=== PATIENT | female | born 1960 | race Caucasian/White ===

== ENCOUNTER 2018-07-02 07:19 | Day surgery (SDC) | payer OTHER, BC ==
--- NOTE | 2018-06-29 14:18 | RAD REPORT ---
EXAM DESCRIPTION: Ely Cueva (2 Views)06/29/2018 2:13 pm CLINICAL HISTORY: Preop for back mass surgery COMPARISON: None FINDINGS: Lungs are mildly hyperaerated. The lungs appear clear of acute infiltrate. The heart is n ormal size IMPRESSION: No acute abnormalities displayed
[2018-06-29 14:24] LABS: Absolute Monocytes 0.4 K/uL (0.1-1.3); Absolute Neutrophil 3.1 K/uL (1.8-8.0); Basophils % 0.6 % (0-1.3); Hematocrit 43.6 % (36.0-45.0); Lymphocytes % 35.9 % (15.3-44.8); MCH 32.3 pg (27.0-35.0); MCV 92.9 fL (80-100); MPV 7.7 fL (7.6-11.3); Monocytes % 7.5 % (3.3-12.3); RBC Red Blood Cell Count 4.69 M/uL (3.86-4.86)
[2018-06-29 14:26] LABS: Potassium 3.7 mmol/L (3.5-5.1)
--- NOTE | 2018-06-30 08:30 | EKG ---
Test Date: 2018-06-29 Test Time: 13:54:33 [employer]otive [employer] Clerk: GÉNESIS MEASUREMENT RESULTS: Intervals: Rate: 71 MI: 180 QRSD: 82 QT: 404 QTc: 439 [place]: P: 63 MI: 180 QRS: 90 T: 67 INTERPRETIVE STATEMENTS: Sinus rhythm with premature atrial complexes Rightward axis Septal infarct, age undetermined Abnormal ECG No previous ECG available for comparison Electronically Signed On 06-30-18 08:29:27 SENIOR TECHNICAL ANALYST by Floyd Arauz
--- OUTSIDE RECORDS SUMMARY | 2018-07-02 07:23 | XMS REPORT | Clinical Summary ---
:1960 Author Organization [facility] Address [address] [place] [address] Care Team Providers Name Role Phone Elijah Ambrocio MD Primary Care Provider Allergies Active Allergy Reactions Severity Noted Date Comments Celecoxib Rash, GI Intolerance Low 05/10/2016 Medications Medication Sig Dispensed Refills Start Date End Date Status estradiol (ESTRACE) 1 MG Take 1 mg by 0 Active tablet mouth daily. clonAZEPAM (KlonoPIN) Take 0.5 mg by 0 Active 0.5 MG tablet mouth nightly as needed. methocarbamol (ROBAXIN) Take 750 mg by 0 Active 750 MG tablet mouth nightly as needed for muscle spasms. cyanocobalamin (VITAMIN Inject 1,000 mcg 0 Active B-12) 1,000 mcg/mL into the injection shoulder, thigh, or buttocks every 30 (thirty) days. DEXLANSOPRAZOLE Take by mouth. 0 Active (DEXILANT ORAL) pregabalin (LYRICA) 75 Take 75 mg by 0 Active MG capsule mouth 2 (two) times a day. fentaNYL (DURAGESIC) Place 1 patch on 0 Active 12.5 mcg/hr the skin every third day. promethazine (PHENERGAN) Take 25 mg by 0 Active 25 MG tablet mouth every 6 (six) hours as needed for nausea or vomiting. HYDROcodone-acetaminophe Take 1 tablet by 0 Active n (NORCO 10-325) 10-325 mouth every 6 mg per tablet (six) hours as needed for moderate pain. apixaban (ELIQUIS) 2.5 Take 2.5 mg by 0 Active mg tablet mouth 2 (two) times a day. Active Problems No known active problems Family History Medical History Relation Name Comments Heart disease Father Anuerysm Mother Relation Name Status Comments Father Mother Social History Tobacco Use Types Packs/Day Years Used Date Current Every Day Smoker Cigarettes 0.25 Smokeless Tobacco: Never Used Alcohol Use Drinks/Week oz/Week Comments No Sex Assigned at Date Recorded Not on file Job Start Date Occupation Industry Not on file Not on file Not on file Travel History Travel Start Travel End No recent travel history available. Last Filed Vital Signs Not on file Plan of Treatment Health Maintenance Due Date Last Done Comments CERVICAL CANCER SCREENING 1980 BREAST CANCER SCREENING 2009 COLON CANCER SCREENING 2009 SHINGRIX VACCINE (1 of 2) 2009 INFLUENZA VACCINE 02/28/2018 HEPATITIS B VACCINES Aged Out No longer eligible based on patient's age to complete this topic IPV VACCINES Aged Out No longer eligible based on patient's age to complete this topic MENINGOCOCCAL VACCINE Aged Out No longer eligible based on patient's age to complete this topic Results Not on fileafter 07/01/2017 Insurance Payer Benefit Plan / Group Subscriber ID Type Phone Address MEDICARE MEDICARE PART A AND B xxxxxxxxxx Medicare [place], [place] BCBS BCBS CHOICE PPO/[employer] PPO xxxxxxxxxxxx PPO Advance Directives Patient has advance care planning documents on file. For more information, please contact:[place] [address]
--- OUTSIDE RECORDS SUMMARY | 2018-07-02 07:23 | XMS REPORT | Continuity of Care Document ---
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 04/07/20 [facility] [place] 11/ NECK Active 05/22/20 [place] [address] [facility] CERVICAL Active 05/22/20 [facility] SPONDYLOSIS AND Medical RADICULOPATHY, Center DM (<span Active Problem 05/15/2016 diet ID="[id number] controlled [facility], ">Confirmed</spa H [place] n>)<sup>1</sup> [facility] DVT (<span Active Problem 05/15/2016 ID="[id number] [facility],M ">Confirmed</spa H [place] n>) Medical [place] Pain Active Problem 05/15/2016 [facility] Spondylolysis Active Problem 05/15/2016 [facility] OTHER Active [facility] SPONDYLOSIS WITH Medical RADICULOPATHY, Center CE RADICULOPATHY, Active [facility] CERVICAL REGION [facility] PAIN IN LEG, Active UNSPECIFIED [place] LOCALIZED Active SWELLING, MASS [place] AND LUMP, UNSPE PERIPHERAL Active VASCULAR [facility] DISEASE, UNSPECIFIED CAUSALGIA OF Active [facility] LEFT LOWER LIMB [facility] Medications Medication Details Route Status Patient Ordering Order Source Instructions Provider Date pneumococcal 0.5 mL, Route: Inactive 06/06[facility] capsular IM, Drug Form: 2014 Medical polysaccharide INJ, Daily, [place] type 1 vaccine / Start date: pneumococcal 06/06/15 capsular 9:00:00, polysaccharide Duration: 1 type 10A vaccine doses or times, / pneumococcal Stop date: capsular 06/06/15 polysaccharide 9:00:00Notes: type 11A vaccine (Same as: / pneumococcal Pneumovax 23) capsular Refrigerate polysaccharide type 12F vaccine / pneumococcal capsular polysacchar influenza virus 0.5 mL, Route: Inactive [facility] vaccine, IM, Drug Form: 2014 Medical inactivated SUSP, Daily, Center Start date: 06/06/15 9:00:00, Duration: 1 doses or times, Stop date: 06/06/15 9:00:00Notes: (Same as: Fluzone Quadrivalent) For 3 years of age and older (0.5 mL IM) Shake well before use Estradiol 1 mg, 1 tab, Inactive [place] Route: PO, Drug 2014 Medical form: TAB, Center Daily, Dosing Weight 60, kg, Start date: 06/06/15 9:00:00, Duration: 30 day, Stop date: 07/05/15 9:00:00 Clonazepam 0.5 mg, 1 tab, No Longer [facility] Route: PO, Drug Active 2014 Medical form: TAB, Center Bedtime, Dosing Weight 60, kg, Start date: 06/05/15 21:00:00, Duration: 30 day, Stop date: 07/04/15 21:00:00Notes: (Same As: KlonoPIN) Dexamethasone 4 mg, 1 mL, No Longer [place] Route: IVP, Drug Active 2014 Medical form: INJ, Center [id number], Dosing Weight 60, kg, Start date: 06/05/15 18:00:00, Duration: 1 day, Stop date: 06/06/15 6:00:00Notes: Concentration: 4mg/ml Lyrica 75 mg, 1 cap, No Longer [place] Route: PO, Drug Active 2014 Medical form: CAP, BID, Center Dosing Weight 60, kg, Start date: 06/05/15 17:00:00, Duration: 30 day, Stop date: 07/05/15 9:00:00Notes: (Same as: Lyrica) Docusate Sodium 100 mg, 1 cap, No Longer [facility] 100 MG Oral Route: PO, Drug Active 2014 Medical Capsule [Colace] form: CAP, BID, Center Dosing Weight 60, kg, Start date: 06/05/15 17:00:00, Duration: 30 day, Stop date: 07/05/15 9:00:00Notes: (Same as: Colace) (Do Not Crush) ceFAZolin (SCIP) 1 gm, Route: No Longer [facility] IVPB, Drug form: Active 2014 Medical PDR/INJ, Q8H, Center Dosing Weight 60, kg, Start date: 06/05/15 17:00:00, Duration: 24 hr, Stop date: 06/06/15 9:00:00Notes: (Same As: Sandeep Carlos) MEDICATION WASTE Product Size: 1000 mg Product Wasted: ___ mg ketOROLAC 30 30 mg, 1 mL, No Longer [place] mg/mL injectable Route: IV, Drug Active 2014 Medical solution form: INJ, Center Q6H-02, Dosing Weight 60, kg, Start date: 06/05/15 14:00:00, Duration: 1 day, Stop date: 06/06/15 8:00:00Notes: (Same as:Toradol) IV bolus must be given >15 seconds. Give IM administration slowly and deeply into the muscle. Not for use > 4 days MEDICATION WASTE Product Size: 30 mg Product Wasted: ___ mg Ambien 5 mg, 1 tab, No Longer [place] Route: PO, Drug Active 2014 Medical form: TAB, Center Bedtime, PRN Sleep, Start date: 06/05/15 13:02:00, Duration: 30 day, Stop date: 07/05/15 13:01:00Notes: (Same As: Ambien) Ofirmev 1,000 mg, 100 No Longer [place] mL, Route: IV, Active 2014 Medical Drug form: INJ, Center Q6H, Dosing Weight 60, kg, for > or=50 kg, Start date: 06/05/15 12:00:00, Duration: 1 day, Stop date: 06/06/15 6:00:00Notes: Infuse over 15 minutes Do not exceed 4gm/day of acetaminophen MEDICATION WASTE Product Size: 1000 mg Product Wasted: ___ mg Fentanyl Route: TOP, Drug No Longer [place] form: ERFILM, Active 2014 Medical Q72H, Dosing Center Weight 60, kg, Start date: 06/05/15 12:00:00, Duration: 30 day, Stop date: 07/02/15 12:00:00Notes: (Same as: Duragesic) Check for product integrity. Apply to intact skin "Remove old patch before application of new patch" 1 patch delivers 12.5 micrograms Baclofen 10 mg, 1 tab, No Longer [place] Route: PO, Drug Active 2014 Medical form: TAB, TID, Center Dosing Weight 60, kg, PRN as needed for muscle spasm, Start date: 06/05/15 11:22:00, Duration: 30 day, Stop date: 07/05/15 11:21:00Notes: (Same As: Lioresal) Zofran 4 mg, 2 mL, No Longer [place] Route: IV, Drug Active 2014 Medical form: INJ, Q4H, Center Dosing Weight 60, kg, PRN Nausea, Start date: 06/05/15 11:20:00, Duration: 30 day, Stop date: 07/05/15 11:19:00Notes: (Same as: Zofran) MEDICATION WASTE Product Size: 4 mg Product Wasted: ___ mg sennosides, [facility]IOR [facility] 8.6 mg, 1 tab, No Longer [facility] Route: PO, Drug Active 2014 Medical Form: TAB, Center Dosing Weight 60, kg, Daily, PRN Constipation, Start date: 06/05/15 11:20:00, Duration: 30 day, Stop date: 07/05/15 11:19:00Notes: (Same as: Senokot) Phenergan 12.5 mg, 0.5 mL, No Longer [place] Route: IVPB, Active 2014 Medical Drug form: INJ, Center Q4H, Dosing Weight 60, kg, PRN Nausea & Vomiting, Start date: 06/05/15 11:19:00, Duration: 30 day, Stop date: 07/05/15 11:18:00Notes: Do not give IV push. (Same as: Phenergan) normal saline 1,000 mL, Rate: No Longer [place] 0.9% IV 1,000 mL 75 ml/hr, Infuse Active 2014 Medical over: 13.3 hr, Center Route: IV, Dosing Weight 60 kg, Total Volume: 1,000, Start date: 06/05/15 11:19:00, Duration: 30 day, Stop date: 07/05/15 11:18:00 Morphine 2 mg, 1 mL, No Longer [facility] Route: IVP, Drug Active 2014 Medical form: INJ, Q4H, Center Dosing Weight 60, kg, PRN Pain Score 4-6, Start date: 06/05/15 11:19:00, Duration: 30 day, Stop date: 07/05/15 11:18:00Notes: (Same as:MORPhine Sulfate) Diphenhydramine 25 mg, 1 cap, No Longer [facility] Route: PO, Drug Active 2014 Medical form: CAP, TID, Center Dosing Weight 60, kg, PRN Itching, Start date: 06/05/15 11:19:00, Duration: 30 day, Stop date: 07/05/15 11:18:00Notes: (Same as: Benadryl) Benzocaine 15 MG 1 lozenge, No Longer [facility] / Menthol 3.6 MG Route: PO, Drug Active 2014 Medical Lozenge [Cepacol Form: EFRAIN, Center Sore Throat Pain Dosing Weight Relief 15/3.6] 60, kg, Q2H, PRN as needed for sore throat, Start date: 06/05/15 11:18:00, Duration: 30 day, Stop date: 07/05/15 11:17:00Notes: Cepacol lozenges Dispense 1 box=16 lozenges (Same As: Cepacol Lozenges) Ambien 10 mg, Route: Inactive Surekha PO, Bedtime, 2014 Medical Dosing Weight Center 60, kg, PRN Insomnia, Start date: 06/05/15 11:18:00, Duration: 30 day, Stop date: 07/05/15 11:17:00 Oxycodone 5 mg, 1 tab, No Longer [facility] Hydrochloride 5 Route: PO, Drug Active 2014 Medical MG Oral Tablet form: TAB, Q4H, Center Dosing Weight 60, kg, PRN Pain Score 1-5, Start date: 06/05/15 11:16:00, Duration: 30 day, Stop date: 07/05/15 11:15:00Notes: (Same as: Roxicodone) Phenergan 25 mg, 1 tab, No Longer [facility] Route: PO, Drug Active 2014 Medical form: TAB, Q6H, Center Dosing Weight 60, kg, PRN Nausea, Start date: 06/05/15 11:15:00, Duration: 30 day, Stop date: 07/05/15 11:14:00Notes: (Same as: Phenergan) Hydromorphone 0.5 mg, Route: Inactive [facility] IVP, Q5Min, 2014 Medical Dosing Weight Center 60, kg, PRN Pain Score 7-10, Start date: 06/05/15 10:24:00, Duration: 4 doses or times, Stop date: Limited # of times Naloxone 0.04 mg, Route: Inactive [facility] IVP, Q2MIN, 2014 Medical Dosing Weight Center 60, kg, PRN Narcotic Reversal, Start date: 06/05/15 10:24:00, Duration: 8 doses or times, Stop date: Limited # of times Ondansetron 4 mg, Route: Inactive [facility] IVP, ONCE, 2014 Medical Dosing Weight Center 60, kg, PRN Nausea & Vomiting, Start date: 06/05/15 10:24:00 Flumazenil 0.2 mg, Route: Inactive [facility] IVP, PRN, Dosing 2014 Medical Weight 60, kg, Center PRN Benzodiazepine Reversal, Initial dose, Start date: 06/05/15 10:24:00, Duration: 30 day, Stop date: 07/05/15 10:23:00 Ofirmev 1 gm, 100 mL, No Longer [place] Route: IV, Drug Active 2014 Medical form: INJ, PRE Center OP, Start date: 06/04/15 23:00:00, Duration: 1 day, Stop date: 06/05/15 22:59:00Notes: Infuse over 15 minutes Do not exceed 4gm/day of acetaminophen MEDICATION WASTE Product Size: 1000 mg Product Wasted: ___ mg ceFAZolin 2 gm, 100 mL, No Longer [facility] Route: IVPB, Active 2014 Medical Drug form: INJ, Center PRE OP, Start date: 06/04/15 23:00:00, Duration: 1 day, Stop date: 06/05/15 22:59:00Notes: Same as: Ancef Vitamin B12 1000 1,000 Active [place] mcg/mL injectable microgram=1 mL, 2015 Medical solution IM, qMonth, # 10 [place] mL, 0 Refill(s) baclofen 10 mg 10 mg=1 tab, PO, Active [facility] oral tablet TID, # 270 tab, 2015 Medical 0 Refill(s) [place] oxyCODONE 5 mg 5 mg=1 cap, PO, Active [facility] oral capsule Q6H, PRN Pain, 0 2014 Medical Refill(s) [place] Promethazine 25 mg=1 tab, PO, Active [place] Hydrochloride 25 Q6H, PRN Nausea, 2015 Medical MG Oral Tablet # 15 tab, 0 [place] [Phenergan] Refill(s) fentaNYL 12 1 patch, TOP, Active [facility] mcg/hr Q72H, # 10 [facility][note 2] Medical transdermal film, patch, 0 [place] extended release Refill(s) Aspirin 325 mg, PO, Active [facility] Daily, 0 2014 Medical Refill(s) [place] clonazePAM 0.5 mg 0.5 mg=1 tab, Active [facility] oral tablet PO, Bedtime, 0 [facility][note 2] Medical Refill(s) [place] Estradiol 1 mg, PO, Daily, Active [facility] 0 Refill(s) [address] [place] [address] potassium 20 mEq, PO, Active [facility] chloride Daily, 0 [facility][note 2] Medical Refill(s) [place] pregabalin 75 MG 75 mg=1 cap, PO, Active [facility] Oral Capsule BID, 0 Refill(s) [address] [place] [address] [Lyrica] [place] Furosemide 40 MG 40 mg=1 tab, PO, Active [facility] Oral Tablet Daily, [address] [place] [address] [Lasix] Refill(s) [place] Allergies, Adverse Reactions, Alerts Substance Category Reaction Severity Reaction Status Date Comments Source type Reported Immunizations Immunization Date Site Status Last Updated Comments Source Given influenza virus Left completed [facility] vaccine, 5 deltoid [facility] pneumococcal Right completed [facility] 23-valent vaccine 5 deltoid [facility] Results Order Name Results Value Reference Date Interpretation Comments Source Range BLOOD BANK Antibody Negative 06/05 [facility] RESULTS Scrn /2014 Medical (06/05/15 7:35 AM) [place] BLOOD BANK ABO/Rh O POS 06/05 [facility] HEMATOLOGY TEG Interp Thrombelast 05/29 [facility] ograph [facility] show shortened value of R. 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 [facility] HEMATOLOGY TEG Data See Note 05/29 [facility] (05/29/15 10:55 AM) [place] HEMATOLOGY R-time 4.8 min 5.0 - 10.0 05/29 [facility] HEMATOLOGY K-time 1.4 min 1.0 - 3.0 05/29 [facility] HEMATOLOGY Angle 70.1 53.0 - 05/29 [facility] degrees 72. [facility] HEMATOLOGY Max Amp 58.9 mm 50.0 - 05/29 [facility] 70.0 [facility] HEMATOLOGY G-value 7.2 K d/sc 4.5 - 11.0 05/29 [facility] HEMATOLOGY Ly30 4.6 % 0.0 - 7.5 05/29 [facility] CHEM PANEL eGFR 72 05/29 Result Comment: The eGFR is calculated using the CKD-EPI formula. In most young, healthy individuals the eGFR will be >90 mL/ min/1.73m2. The eGFR declines with age. An eGFR of 60-89 may be normal in [facility] mL/min/1.73 /2014 some populations, particularly the elderly, for whom the CKD-EPI formula has not been extensively validated. Use of the eGFR is not recommended in the following populations: [place] [address] [facility] Individuals with unstable creatinine concentrations, including patients and those with serious co-morbid conditions. Patients with extremes in muscle mass or diet. The data above are obtained from the National Kidney Disease Education Program (NKDEP) which additionally recommends that when the eGFR is used in patients with extremes of body mass index for purposes of drug dosing, the eGFR should be multiplied by the estimated BMI. CHEM PANEL BUN 13 mg/dL 7 - 22 05/29 [facility] CHEM PANEL Glucose Lvl 51 mg/dL 70 - 99 05/29 2014 [facility] CHEM PANEL Potassium 4.5 meq/L 3.5 - 5.1 05/29 [facility] Lv [facility] CHEM PANEL Creatinine 0.9 mg/dL 0.5 - 1.4 05/29 [facility] Lvl [facility] CHEM PANEL Sodium Lvl 147 meq/L 135 - 145 05/29 2014 [facility] CHEM PANEL CO2 28 meq/L 24 - 32 05/29 2014 [facility] CHEM PANEL Chloride Lvl 108 meq/L 95 - 109 05/[address] CHEM PANEL Calcium Lvl 8.9 mg/dL 8.5 - 10.5 05/29 [facility] CHEM PANEL AGAP 15.5 meq/L 10.0 - 05/29 [facility] 20.0 [facility] CHEM PANEL Total 6.8 g/dL 6.4 - 8.4 05/29 [facility] Protein [facility] CHEM PANEL B/C Ratio 14 6 - 25 05/[address] CHEM PANEL ALT 28 unit/L 0 - 65 05/[address] CHEM PANEL Globulin 3.0 g/dL 2.0 - 4.0 05/29 2014 [facility] CHEM PANEL A/G Ratio 1.3 0.7 - 1.6 05/[address] CHEM PANEL Albumin Lvl 3.8 g/dL 3.5 - 5.0 05/29 2014 [facility] CHEM PANEL AST 18 unit/L 0 - 37 05/29 [facility] CHEM PANEL Bili Total 0.3 mg/dL 0.2 - 1.3 05/[address] CHEM PANEL Alk Phos 96 unit/L 39 - 136 05/29 /2014 [facility] HEMATOLOGY Monocytes # 0.6 K/CMM 0.0 - 0.8 05/[address] [place] [address] HEMATOLOGY Eosinophils 0.1 K/CMM 0.0 - 0.5 05/29 [facility] /2014 [facility] HEMATOLOGY Lymphocytes 2.7 K/CMM 1.0 - 5.5 05/29 [facility] /2014 [facility] HEMATOLOGY Segs-Bands # 5.2 K/CMM 1.5 - 8.1 05/[address] HEMATOLOGY Eosinophils 1.6 % 0.0 - 4.0 05/29 [facility] /[address] [place] [address] HEMATOLOGY Basophils 0.3 % 0.0 - 1.0 05/[address] HEMATOLOGY Lymphocytes 31.0 % 20.0 - 05/29 [place] 40.0 /2014 [facility] HEMATOLOGY Segs 60.2 % 45.0 - 10 [place] 75.0 /2014 [facility] HEMATOLOGY Monocytes 6.9 % 2.0 - 12.0 05/29 [facility] HEMATOLOGY MCHC 32.7 g/dL 32.0 - 05/29 [place] 36.0 /2014 [facility] HEMATOLOGY MCH 31.2 pg 27.0 - 05/29 [place] 31.0 [facility] HEMATOLOGY RDW 13.4 % 11.5 - 05/29 [place] 14.5 [facility] HEMATOLOGY Hgb 15.4 g/dL 12.0 - 05/29 [place] 16.0 [facility] HEMATOLOGY RBC 4.95 M/CMM 4.20 - 05/29 5.40 /2014 [facility] HEMATOLOGY MPV 8.0 fL 7.4 - 10.4 05/29 [facility] HEMATOLOGY Platelet 270 K/CMM 133 - 450 05/29 [facility] HEMATOLOGY MCV 95.4 fL 80.0 - 05/29 [place] 98.0 [facility] HEMATOLOGY Hct 47.2 % 36.0 - 05/29 [place] 48.0 [facility] HEMATOLOGY WBC 8.6 K/CMM 3.7 - 10.4 05/29 [facility] HEMATOLOGY INR 0.97 0.85 - 05/29 [place] 1.17 [facility] HEMATOLOGY PT 13.2 s 12.0 - 05/29 14.7 [facility] HEMATOLOGY PTT 36.5 s 22.9 - 05/29 [place] 35.8 [facility] SPECIAL Hgb A1C 5.1 % <=5.6 % 05/29 [facility] CHEMISTRY [facility] THYROID T4 Free 1.23 ng/dL 0.76 - 05/29 [facility] PANEL 1.46 [facility] THYROID TSH 1.770 0.360 - 05/29 [facility] PANEL uIU/mL 3.740 [facility] Vital Signs Vital Sign Value Date Comments Source Weight 60 04/13/2016 [facility] Height 167.64 cm 04/13/2016 [facility] BMI Calculated 21.35 04/13/2016 [facility] Height 167.64 cm 04/12/2016 [facility] BMI Calculated 21.35 04/12/2016 [facility] Weight 60 04/12/2016 [facility] Systolic (mm Hg) 121 06/06/2015 [facility] Diastolic (mm Hg) 70 06/06/2015 [facility] Respitory Rate 18 06/06/2015 [facility] Heart Rate 68 06/06/2015 [facility] Temperature Oral (F) 97.6 F 06/06/2015 [facility] Systolic (mm Hg) 118 06/06/2015 [facility] Diastolic (mm Hg) 64 06/06/2015 [facility] Respitory Rate 18 06/06/2015 [facility] Heart Rate 62 06/06/2015 [facility] Temperature Oral (F) 97.8 F 06/06/2015 [facility] Respitory Rate 18 06/06/2015 [facility] Systolic (mm Hg) 105 06/06/2015 [facility] Diastolic (mm Hg) 51 06/06/2015 [facility] Heart Rate 56 06/06/2015 [facility] Temperature Oral (F) 97.9 F 06/06/2015 [facility] Height 167.64 cm 06/05/2015 [facility] Weight 60 06/05/2015 [facility] BMI Calculated 21.35 06/05/2015 [facility] Weight 60 05/29/2015 [facility] BMI Calculated 21.35 05/29/2015 [facility] Height 167.64 cm 05/29/2015 [facility] Encounters Location Location Encounter Encounter Reason Attending ADM DC Status Source Details Type Number For Provider Date Date Visit [id number] Adin 05/22 05/22 [facility] Surgery [facility]2014 [facility] Bedded [id number] Adin 06/05 06/06 [facility] Outpatient [facility] /2014 [facility] Outpatient [id number] Shakira 04/12 04/13 [facility] /2015 [facility] Outpatient [id number] Shakira 04/13 04/14 [facility] /2015 [facility] Outpatient [id number] Shakira 05/12 05/13 [facility] /2015 [facility] Procedures Procedure Code Date Perfomer Comments Source Cholecystectomy [id number] [facility] Foot joint operations [id number] [facility] Hysterectomy [id number] [facility] Jaw and [id number] [facility] temporomandibular joint operations Cholecystectomy [id number] [facility] Foot joint operations [id number] [facility] Hysterectomy [id number] [facility] Jaw and [id number] [facility] joint operations
--- OUTSIDE RECORDS SUMMARY | 2018-07-02 07:24 | XMS REPORT | Summary of Care ---
:1960 Author Organization [facility] Address [facility] [place], [place] [address]- Encounter HQ Kelsy_jacquelyn(FIN) [id number] Date(s): 04/13/16 - 04/13/[address] [address]- Discharge Disposition: Home or Self Care Attending Physician: Shakira Gonzalez MD Referring Physician: Shakira Gonzalez MD Vital Signs Most recent to oldest [Reference Range]: 1 Height 167.64 cm (04/13/16 8:19 AM) Weight 60 kg (04/13/16 8:19 AM) Body Mass Index 21.35 m2 (04/13/16 8:19 AM) Problem List Condition Effective Dates Status Health Status Informant DM (diabetes mellitus)(Confirmed)1 Active DVT (deep venous Active thrombosis)(Confirmed) Pain(Confirmed) Active Spondylolysis(Confirmed) Active 1diet controlled Allergies, Adverse Reactions, Alerts Substance Reaction Severity Status NKDA Active Medications No data available for this section Results No data available for this section Immunizations Given and Recorded Vaccine Date Status Refusal Reason influenza virus vaccine, inactivated 06/06/15 Given pneumococcal 23-valent vaccine 06/06/15 Given Procedures Procedure Date Related Diagnosis Body Site Cholecystectomy Foot joint operations Hysterectomy Jaw and temporomandibular joint operations Social History Social History Type Response Smoking Status Current every day smoker; Exposure to Tobacco Smoke None; Cigarette Smoking Last 365 Days Yes; Reg Smoking Cessation Counseling No Assessment and Plan No data available for this section
--- OUTSIDE RECORDS SUMMARY | 2018-07-02 07:24 | XMS REPORT | Summary of Care ---
:1960 Author Organization [facility] Address [facility] [place], [place] [address]- Encounter HQ Kelsy_jacquelyn(FIN) [id number] Date(s): 04/12/16 - 04/12/[address] [address]- Discharge Disposition: Home or Self Care Attending Physician: Shakira Gonzalez MD Referring Physician: Shakira Gonzalez MD Vital Signs Most recent to oldest [Reference Range]: 1 Height 167.64 cm (04/12/16 8:55 AM) Weight 60 kg (04/12/16 8:55 AM) Body Mass Index 21.35 m2 (04/12/16 8:55 AM) Problem List Condition Effective Dates Status [...]
--- OUTSIDE RECORDS SUMMARY | 2018-07-02 07:24 | XMS REPORT | Summary of Care ---
:1960 Author Organization [facility] Address [address] [place], [place] [address]- Encounter HQ Caitlynr_jacquelyn(FIN) [id number] Date(s): 05/12/16 - 05/12/16 [facility] [address] [place], [place] [address]- Discharge Disposition: Home or Self Care Attending Physician: Shakira Gonzalez MD Referring Physician: Shakira Gonzalez MD Vital Signs No data available for this section Problem List Condition Effective Dates Status Health [...]
--- OUTSIDE RECORDS SUMMARY | 2018-07-02 07:24 | XMS REPORT | Summary of Care ---
:1960 Author Organization [facility] Address [address], [place] [address]- Encounter HQ Caitlynr_jacquelyn(FIN) [id number] Date(s): 06/05/15 - 06/06/15 [facility] [address] [place] [address] Professional Services provided by [facility] [place] [address]- Discharge Disposition: Home Attending Physician: Adin Lindsey DO Admitting Physician: Adin Lindsey DO Referring Physician: Adin Lindsey DO Vital Signs Most recent to oldest 1 2 3 [Reference Range]: Height 167.64 cm 167.64 cm (06/05/15 7:51 AM) (05/29/15 1:26 PM) Temperature Oral [96.4-99.1 97.6 DegF 97.8 DegF 97.9 DegF DegF] (06/06/15 8:25 AM) (06/06/15 4:05 AM) (06/06/15 12:25 AM) Blood Pressure [90-140/60-90 121/70 mmHg 118/64 mmHg 105/51 mmHg mmHg] (06/06/15 8:25 AM) (06/06/15 4:05 AM) (06/06/15 12:25 AM) Respiratory Rate [14-20 18 BRMIN 18 BRMIN 18 BRMIN BRMIN] (06/06/15 8:25 AM) (06/06/15 4:05 AM) (06/06/15 12:25 AM) Peripheral Pulse Rate [60-100 68 bpm 62 bpm 56 bpm bpm] (06/06/15 8:25 AM) (06/06/15 4:05 AM) *LOW* (06/06/15 12:25 AM) Weight 60 kg 60 kg (06/05/15 7:51 AM) (05/29/15 1:26 PM) Body Mass Index 21.35 m2 21.35 m2 (06/05/15 7:51 AM) (05/29/15 1:26 PM) Problem List Condition Effective Dates Status Health Status Informant DM (diabetes mellitus)(Confirmed)1 Active DVT (deep venous Active thrombosis)(Confirmed) Pain(Confirmed) Active Spondylolysis(Confirmed) Active 1diet controlled Allergies, Adverse Reactions, Alerts Substance Reaction Severity Status NKDA Active Medications Ambien 5 mg, 1 tab, Route: PO, Drug form: TAB, Bedtime, PRN Sleep, Start date: 13:02:00, Duration:30 day, Stop date: 07/05/15 13:01:00 Notes: (Same As: Ambien) Start Date: 06/05/15 Stop Date: 06/06/15 Status: DiscontinuedAmbien 10 mg, Route: PO, Bedtime, Dosing Weight 60, kg, PRN Insomnia, Start date: 06/05 11:18:00, Duration: 30 day, Stop date: 07/05/15 11:17:00 Start Date: 06/05/15 Stop Date: 06/05/15 Status: Deletedaspirin 325 mg, PO, Daily, 0 Refill(s) Start Date: 05/29/15 Status: Orderedbaclofen 10 mg, 1 tab, Route: PO, Drug form: TAB, TID, Dosing Weight 60, kg, PRN as needed for muscle spasm, Start date: 06/05/15 11:22:00, Duration: 30 day, Stop date: 07/05/15 11:21:00 Notes: (Same As: Bertha) Start Date: 06/05/15 Stop Date: 06/06/15 Status: Discontinuedbaclofen 10 mg oral tablet 10 mg=1 tab, PO, TID, # 270 tab, 0 Refill(s) Start Date: 05/29/15 Status: OrderedceFAZolin 2 gm, 100 mL, Route: IVPB, Drug form: INJ, PRE OP, Start date: 06/04/15 23:00:00 , Duration: 1 day, Stop date: 06/05/15 22:59:00 Notes: Same as: Ancef Start Date: 06/04/15 Stop Date: 06/05/15 Status: CompletedceFAZolin (SCIP) 1 gm, Route: IVPB, Drug form: PDR/INJ, Q8H, Dosing Weight 60, kg, Start date: 17:00:00, Duration: 24 hr, Stop date: 06/06/15 9:00:00 Notes: (Same As: Sandeep Carlos) MEDICATION WASTE Product Size: 1000 mgProduct Wasted: ___ mg Start Date: 06/05/15 Stop Date: 06/06/15 Status: CompletedCepacol Sore Throat Ivey Sugar Free 15 mg-3.6 mg mucous membrane lozenge 1 lozenge, Route: PO, Drug Form: EFRAIN, Dosing Weight 60, kg, Q2H, PRN as needed for sore throat, Start date: 06/05/15 11:18:00, Duration: 30 day, Stop date: 01/12 11:17:00 Notes: Cepacol lozengesDispense 1 box=16 lozenges (Same As: Cepacol Lozenges) Start Date: 06/05/15 Stop Date: 06/06/15 Status: DiscontinuedclonazePAM 0.5 mg, 1 tab, Route: PO, Drug form: TAB, Bedtime, Dosing Weight 60, kg, Start date: 06/05/15 21:00:00, Duration: 30 day, Stop date: 07/04/15 21:00:00 Notes: (Same As: KlonoPIN) Start Date: 06/05/15 Stop Date: 06/06/15 Status: DiscontinuedclonazePAM 0.5 mg oral tablet 0.5 mg=1 tab, PO, Bedtime, 0 Refill(s) Start Date: 05/29/15 Status: OrderedColace 100 mg oral capsule 100 mg, 1 cap, Route: PO, Drug form: CAP, BID, Dosing Weight 60, kg, Start date : 06/05/15 17:00:00, Duration: 30 day, Stop date: 07/05/15 9:00:00 Notes: (Same as: Colace) (Do Not Crush) Start Date: 06/05/15 Stop Date: 06/06/15 Status: Discontinueddexamethasone 4 mg, 1 mL, Route: IVP, Drug form: INJ, [id number], Dosing Weight 60, kg, Start date: 06/05/15 18:00:00, Duration: 1 day, Stop date: 06/06/15 6:00:00 Notes: Concentration: 4mg/ml Start Date: 06/05/15 Stop Date: 06/06/15 Status: CompleteddiphenhydrAMINE 25 mg, 1 cap, Route: PO, Drug form: CAP, TID, Dosing Weight 60, kg, PRN Itching , Start date: 06/05/15 11:19:00, Duration: 30 day, Stop date: 07/05/15 11:18:00 Notes: (Same as: Benadryl) Start Date: 06/05/15 Stop Date: 06/06/15 Status: Discontinuedestradiol 1 mg, PO, Daily, 0 Refill(s) Start Date: 05/29/15 Status: Orderedestradiol 1 mg, 1 tab, Route: PO, Drug form: TAB, Daily, Dosing Weight 60, kg, Start date : 06/06/15 9:00:00, Duration: 30 day, Stop date: 07/05/15 9:00:00 Start Date: 06/06/15 Stop Date: 06/06/15 Status: DiscontinuedfentaNYL Route: TOP, Drug form: ERFILM, Q72H, Dosing Weight 60, kg, Start date: 06/05/15 12:00:00, Duration: 30 day, Stop date: 07/02/15 12:00:00 Notes: (Same as: Lalogesic)Check for product integrity. Apply to intact skin "Remove old patch before application of new patch"1 patch delivers 12.5 micrograms Start Date: 06/05/15 Stop Date: 06/06/15 Status: DiscontinuedfentaNYL 12 mcg/hr transdermal film, extended release 1 patch, TOP, Q72H, # 10 patch, 0 Refill(s) Start Date: 05/29/15 Status: Orderedflumazenil 0.2 mg, Route: IVP, PRN, Dosing Weight 60, kg, PRN Benzodiazepine Reversal, Initial dose, Start date: 06/05/15 10:24:00, Duration: 30 day, Stop date: 10:23:00 Start Date: 06/05/15 Stop Date: 06/05/15 Status: Discontinuedhydromorphone 0.5 mg, Route: IVP, Q5Min, Dosing Weight 60, kg, PRN Pain Score 7-10, Start date : 06/05/15 10:24:00,Duration: 4 doses or times, Stop date: Limited # of times Start Date: 06/05/15 Stop Date: 06/05/15 Status: Discontinuedinfluenza virus vaccine, inactivated 0.5 mL, Route: IM, Drug Form: SUSP, Daily, Start date: 06/06/15 9:00:00, Duration: 1 doses or times,Stop date: 06/06/15 9:00:00 Notes: (Same as: Fluzone Quadrivalent)For 3 years of age and older (0.5 mL IM) Shake well before use Start Date: 06/06/15 Stop Date: 06/06/15 Status: CompletedketOROLAC 30 mg/mL injectable solution 30 mg, 1 mL, Route: IV, Drug form: INJ, Q6H-02, Dosing Weight 60, kg, Start date : 06/05/15 14:00:00,Duration: 1 day, Stop date: 06/06/15 8:00:00 Notes: (Same as:Toradol) IV bolus must be given >15 seconds. Give IM administration slowly and deeply into the muscle.Not for use > 4 days MEDICATION WASTE Product Size: 30 mgProduct Wasted: ___ mg Start Date: 06/05/15 Stop Date: 06/06/15 Status: CompletedLasix 40 mg oral tablet 40 mg=1 tab, PO, Daily, 0 Refill(s) Start Date: 05/29/15 Status: OrderedLyrica 75 mg, 1 cap, Route: PO, Drug form: CAP, BID, Dosing Weight 60, kg, Start date: 06/05/15 17:00:00, Duration: 30 day, Stop date: 07/05/15 9:00:00 Notes: (Same as: Lyrica) Start Date: 06/05/15 Stop Date: 06/06/15 Status: DiscontinuedLyrica 75 mg oral capsule 75 mg=1 cap, PO, BID, 0 Refill(s) Start Date: 05/29/15 Status: Orderedmorphine Sulfate 2 mg, 1 mL, Route: IVP, Drug form: INJ, Q4H, Dosing Weight 60, kg, PRN Pain Score 4-6, Start date: 06/05/15 11:19:00, Duration: 30 day, Stop date: 07/05/15 11:18:00 Notes: (Same as:MORPhine Sulfate) Start Date: 06/05/15 Stop Date: 06/06/15 Status: Discontinuedmorphine Sulfate 4 mg, 1 mL, Route: IVP, Drug form: INJ, Q4H, Dosing Weight 60, kg, PRN Pain Score 7-10, Start date: 06/05/15 11:19:00, Duration: 30 day, Stop date: 11:18:00 Notes: (Same as:MORPhine Sulfate) Start Date: 06/05/15 Stop Date: 06/06/15 Status: Discontinuednaloxone 0.04 mg, Route: IVP, Q2MIN, Dosing Weight 60, kg, PRN Narcotic Reversal, Start date: 06/05/15 10:24:00, Duration: 8 doses or times, Stop date: Limited # of times Start Date: 06/05/15 Stop Date: 06/05/15 Status: Discontinuednormal saline 0.9% IV 1,000 mL 1,000 mL, Rate: 75 ml/hr, Infuse over: 13.3 hr, Route: IV, Dosing Weight 60 kg, Total Volume: 1,000,Start date: 06/05/15 11:19:00, Duration: 30 day, Stop date: 07/05/15 11:18:00 Start Date: 06/05/15 Stop Date: 06/06/15 Status: DiscontinuedOfirmev 1 gm, 100 mL, Route: IV, Drug form: INJ, PRE OP, Start date: 06/04/15 23:00:00, Duration: 1 day, Stop date: 06/05/15 22:59:00 Notes: Infuse over 15 minutesDo not exceed 4gm/day of acetaminophen MEDICATION WASTE ProductSize: 1000 mgProduct Wasted: ___ mg Start Date: 06/04/15 Stop Date: 06/06/15 Status: DiscontinuedOfirmev 1,000 mg, 100 mL, Route: IV, Drug form: INJ, Q6H, Dosing Weight 60, kg, for > or =50 kg, Start date: 06/05/15 12:00:00, Duration: 1 day, Stop date: 06/06/15 6:00 :00 Notes: Infuse over 15 minutesDo not exceed 4gm/day of acetaminophen MEDICATION WASTE ProductSize: 1000 mgProduct Wasted: ___ mg Start Date: 06/05/15 Stop Date: 06/06/15 Status: Completedondansetron 4 mg, Route: IVP, ONCE, Dosing Weight 60, kg, PRN Nausea & Vomiting, Start date: 06/05/15 10:24:00 Start Date: 06/05/15 Stop Date: 06/05/15 Status: DiscontinuedoxyCODONE 5 mg immediate release 5 mg, 1 tab, Route: PO, Drug form: TAB, Q4H, Dosing Weight 60, kg, PRN Pain Score 1-5, Start date: 06/05/15 11:16:00, Duration: 30 day, Stop date: 07/05/15 11:15:00 Notes: (Same as: Roxicodone) Start Date: 06/05/15 Stop Date: 06/06/15 Status: DiscontinuedoxyCODONE 5 mg oral capsule 5 mg=1 cap, PO, Q6H, PRN Pain, 0 Refill(s) Start Date: 05/29/15 Stop Date: 06/05/15 Status: OrderedPhenergan 25 mg, 1 tab, Route: PO, Drug form: TAB, Q6H, Dosing Weight 60, kg, PRN Nausea, Start date: 06/05/1511:15:00, Duration: 30 day, Stop date: 07/05/15 11:14:00 Notes: (Same as: Phenergan) Start Date: 06/05/15 Stop Date: 06/06/15 Status: DiscontinuedPhenergan 12.5 mg, 0.5 mL, Route: IVPB, Drug form: INJ, Q4H, Dosing Weight 60, kg, PRN Nausea & Vomiting, Start date: 06/05/15 11:19:00, Duration: 30 day, Stop date: 07/05/15 11:18:00 Notes: Do not give IV push. (Same as: Phenergan) Start Date: 06/05/15 Stop Date: 06/06/15 Status: DiscontinuedPhenergan 25 mg oral tablet 25 mg=1 tab, PO, Q6H, PRN Nausea, # 15 tab, 0 Refill(s) Start Date: 05/29/15 Stop Date: 06/02/15 Status: Orderedpneumococcal 23-valent vaccine 0.5 mL, Route: IM, Drug Form: INJ, Daily, Start date: 06/06/15 9:00:00, Duration : 1 doses or times, Stop date: 06/06/15 9:00:00 Notes: (Same as: Pneumovax 23) Refrigerate Start Date: 06/06/15 Stop Date: 06/06/15 Status: Completedpotassium chloride 20 mEq, PO, Daily, 0 Refill(s) Start Date: 05/29/15 Status: Orderedsenna 8.6 mg, 1 tab, Route: PO, Drug Form: TAB, Dosing Weight 60, kg, Daily, PRN Constipation, Start date:06/05/15 11:20:00, Duration: 30 day, Stop date: 11:19:00 Notes: (Same as: Senokot) Start Date: 06/05/15 Stop Date: 06/06/15 Status: DiscontinuedVitamin B12 1000 mcg/mL injectable solution 1,000 microgram=1 mL, IM, qMonth, # 10 mL, 0 Refill(s) Start Date: 05/29/15 Status: OrderedZofran 4 mg, 2 mL, Route: IV, Drug form: INJ, Q4H, Dosing Weight 60, kg, PRN Nausea, Start date: 06/05/15 11:20:00, Duration: 30 day, Stop date: 07/05/15 11:19:00 Notes: (Same as: Zofran) MEDICATION WASTE Product Size: 4 mgProduct Wasted: ___ mg Start Date: 06/05/15 Stop Date: 06/06/15 Status: Discontinued Results BLOOD BANK RESULTS Most recent to oldest [Reference Range]: 1 ABO/Rh O POS *Unknown* (06/05/15 7:35 AM) Antibody Scrn Negative (06/05/15 7:35 AM) ELECTROLYTES Most recent to oldest [Reference Range]: 1 Sodium Lvl [135-145 mEq/L] 147 mEq/L *HI* (05/29/15 8:40 AM) Potassium Lvl [3.5-5.1 mEq/L] 4.5 mEq/L (05/29/15 8:40 AM) Chloride Lvl [95-109 mEq/L] 108 mEq/L (05/29/15 8:40 AM) CO2 [24-32 mEq/L] 28 mEq/L (05/29/15 8:40 AM) AGAP [10.0-20.0 mEq/L] 15.5 mEq/L (05/29/15 8:40 AM) CHEM PANEL Most recent to oldest [Reference Range]: 1 Creatinine Lvl [0.5-1.4 mg/dL] 0.9 mg/dL (05/29/15 8:40 AM) eGFR 72 mL/min/1.73m2 1 *NA* (05/29/15 8:40 AM) BUN [7-22 mg/dL] 13 mg/dL (05/29/15 8:40 AM) B/C Ratio [6-25] 14 (05/29/15 8:40 AM) Glucose Lvl [70-99 mg/dL] 51 mg/dL *LOW* (05/29/15 8:40 AM) Total Protein [6.4-8.4 g/dL] 6.8 g/dL (05/29/15 8:40 AM) Albumin Lvl [3.5-5.0 g/dL] 3.8 g/dL (05/29/15 8:40 AM) Globulin [2.0-4.0 g/dL] 3.0 g/dL (05/29/15 8:40 AM) A/G Ratio [0.7-1.6] 1.3 (05/29/15 8:40 AM) Calcium Lvl [8.5-10.5 mg/dL] 8.9 mg/dL (05/29/15 8:40 AM) ALT [0-65 unit/L] 28 unit/L (05/29/15 8:40 AM) AST [0-37 unit/L] 18 unit/L (05/29/15 8:40 AM) Alk Phos [39-136 unit/L] 96 unit/L (05/29/15 8:40 AM) Bili Total [0.2-1.3 mg/dL] 0.3 mg/dL (05/29/15 8:40 AM) 1Result Comment: The eGFR is calculated using the CKD-EPI formula. In most young , healthy individualsthe eGFR will be >90 mL/min/1.73m2. The eGFR declines with age. An eGFR of 60-89 may be normal in some populations, particularly the elderly, for whom the CKD-EPI formula has not been extensively validated. Use of the eGFR is not recommended in the following populations: Individuals with unstable creatinine concentrations, including patients and those with serious co-morbid conditions. Patients with extremes in muscle mass or diet. The data above are obtained from the National Kidney Disease Education Program ( NKDEP) which additionally recommends that when the eGFR is used in patients with extremes of body mass index for purposesof drug dosing, the eGFR should be multiplied by the estimated BMI.SPECIAL CHEMISTRY Most recent to oldest [Reference Range]: 1 Hgb A1C [<=5.6 %] 5.1 % (05/29/15 8:40 AM) THYROID PANEL Most recent to oldest [Reference Range]: 1 T4 Free [0.76-1.46 ng/dL] 1.23 ng/dL (05/29/15 8:40 AM) TSH [0.360-3.740 uIU/mL] 1.770 uIU/mL (05/29/15 8:40 AM) HEMATOLOGY Most recent to oldest [Reference Range]: 1 WBC [3.7-10.4 K/CMM] 8.6 K/CMM (05/29/15 8:40 AM) RBC [4.20-5.40 M/CMM] 4.95 M/CMM (05/29/15 8:40 AM) Hgb [12.0-16.0 g/dL] 15.4 g/dL (05/29/15 8:40 AM) Hct [36.0-48.0 %] 47.2 % (05/29/15 8:40 AM) MCV [80.0-98.0 fL] 95.4 fL (05/29/15 8:40 AM) MCH [27.0-31.0 pg] 31.2 pg *HI* (05/29/15 8:40 AM) MCHC [32.0-36.0 g/dL] 32.7 g/dL (05/29/15 8:40 AM) RDW [11.5-14.5 %] 13.4 % (05/29/15 8:40 AM) Platelet [133-450 K/CMM] 270 K/CMM (05/29/15 8:40 AM) MPV [7.4-10.4 fL] 8.0 fL (05/29/15 8:40 AM) Segs [45.0-75.0 %] 60.2 % (05/29/15 8:40 AM) Lymphocytes [20.0-40.0 %] 31.0 % (05/29/15 8:40 AM) Monocytes [2.0-12.0 %] 6.9 % (05/29/15 8:40 AM) Eosinophils [0.0-4.0 %] 1.6 % (05/29/15 8:40 AM) Basophils [0.0-1.0 %] 0.3 % (05/29/15 8:40 AM) Segs-Bands # [1.5-8.1 K/CMM] 5.2 K/CMM (05/29/15 8:40 AM) Lymphocytes # [1.0-5.5 K/CMM] 2.7 K/CMM (05/29/15 8:40 AM) Monocytes # [0.0-0.8 K/CMM] 0.6 K/CMM (05/29/15 8:40 AM) Eosinophils # [0.0-0.5 K/CMM] 0.1 K/CMM (05/29/15 8:40 AM) PT [12.0-14.7 seconds] 13.2 seconds (05/29/15 8:40 AM) INR [0.85-1.17] 0.97 (05/29/15 8:40 AM) PTT [22.9-35.8 seconds] 36.5 seconds *HI* (05/29/15 8:40 AM) R-time [5.0-10.0 minutes] 4.8 minutes *LOW* (05/29/15 10:55 AM) K-time [1.0-3.0 minutes] 1.4 minutes (05/29/15 10:55 AM) Angle [53.0-72.0 degrees] 70.1 degrees (05/29/15 10:55 AM) Max Amp [50.0-70.0 mm] 58.9 mm (05/29/15 10:55 AM) G-value [4.5-11.0 K d/sc] 7.2 K d/sc (05/29/15 10:55 AM) Ly30 [0.0-7.5 %] 4.6 % (05/29/15 10:55 AM) Coag Index [-3.0-3.0] 1.1 (05/29/15 10:55 AM) TEG Interp Thrombelastograph results show shortened value of R. This finding is suggestive of enzymatic hypercoagulation. CPT:14323 *NA* (05/29/15 10:55 AM) TEG Data See Note (05/29/15 10:55 AM) Immunizations Vaccine Date Refusal Reason influenza virus vaccine, inactivated 06/06/15 pneumococcal 23-valent vaccine 06/06/15 Procedures Procedure Date Related Diagnosis Body Site Cholecystectomy Foot joint operations Hysterectomy Jaw and temporomandibular joint operations Social History Social History Type Response Smoking Status Current every day smoker; Exposure to Tobacco Smoke None; Cigarette Smoking Last 365 Days Yes; Reg Smoking Cessation Counseling No Assessment and Plan Extracted from: Title: POD #1 Author: Adin Lindsey DO Date: 06/06/15 Neurosurgery Awake, alert, Ox3 Motor as preop with significant weakness in right hand intrinsics. Weakness in wrist extension as well. Preop arm pain is gone, however. Wound is dry. Drain pulled. Redressed wound. Home instructions given to him and his . Printed home prescriptions as well. He is ambulating. Plan to see in 4 weeks time. Adin Lindsey DO, FACOS Addendum by Adin Lindsey DO on 06/06/2015 12:51 This note was inadvertantly put in the wrong patient's chart. It applies to antoehr patient. Adin Lindsey DO, FACOS
--- OUTSIDE RECORDS SUMMARY | 2018-07-02 07:24 | XMS REPORT | Summary of Care ---
:1960 Author Organization [facility] Address [address], [place] [address]- Encounter HQ Encntr_alias(FIN) [id number] Date(s): 05/22/15 - 05/22/15 [facility] [address], [place] [address]- [employer] Attending Physician: Adin Lindsey DO Referring Physician: Adin Lindsey DO Vital Signs No data available for this section Problem List No data available for this section Allergies, Adverse Reactions, Alerts No data available for this section Medications No data available for this section Results No data available for this section Immunizations No data available for this section Procedures No data available for this section Social History No data available for this section Assessment and Plan No data available for this section
[2018-07-02] MEDS ORDERED: Ringers Lactate 1,000 ML IV ONE (07:56)
[2018-07-02] MEDS ORDERED: MIDAZOLAM HCL 2 MG/2 ML INJ ONE (08:36)
[2018-07-02] MEDS ORDERED: PROPOFOL 200 MG/20 ML VIAL IV ONE (08:36)
[2018-07-02] MEDS ORDERED: FENTANYL CITR 100 MCG/2 ML ONE (08:36)
[2018-07-02] MEDS ORDERED: LIDOCAINE 2% MPF 5 ML VIAL ONE (08:37)
[2018-07-02] MEDS ORDERED: ONDANSETRON HCL 40 MG/20 ML VIAL ONE (08:37)
[2018-07-02] MEDS ORDERED: SCOPOLAMINE HYDROBROMIDE PATCH TD ONE (08:42)
[2018-07-02] MEDS ORDERED: CEFAZOLIN 1GM (PREMIX IV) 1 GM/50 ML BAG ONE (08:55)
--- NOTE | 2018-07-02 09:41 | P.BOP ---
Preoperative diagnosis: multiple lower back masses Postoperative diagnosis: same Primary procedure: 1. Excisional biopsy of tender subQ mass mid lower back 3x3 cm Secondary procedure: 2. Excisional biopsy of tender subQ mass right/mid lower back 2x2 cm Estimated blood loss: <10cc Specimen: multiloulated fatty tumor Findings: see dictation Anesthesia: General Transferred to: Recovery Room Condition: Good
[2018-07-02] MEDS: MEPERIDINE HCL 25 MG/0.5 ML ONE ×2 (10:05→10:10)
[2018-07-02] MEDS ORDERED: CODEINE 30MG/APAP 300MG TAB ONE (10:51)
--- NOTE | 2018-07-02 21:28 | OP ---
Date of Procedure: 07/02/2018 Surgeon: Gregor Perla MD Preoperative Diagnosis: Multiple lower back masses. Postoperative Diagnosis: Multiple lower back masses. Procedures: 1.Excisional biopsy of tender subcutaneous mass, mid lower back 2 x 3 cm. 2.Excisional biopsy of tender subcutaneous mass, right mid lower back 2 x 2 cm. Specimen: Multilobulated fatty tumors. Anesthesia: General plus local. Indications: This is the case of a 57-year-old patient, who comes to us with 2 areas of multilobulat ed lesion, is giving her apparent discomfort, maybe more than 1 tumor. It could be just a multilobul ated tumor. The patient want them excised. Benefits, alternatives, and risks fully explained of exc ision which include, but not limited to infection, bleeding, damage to adjacent structures, anesthesi a complication, recurrence, CT, and even . She also understands this may not relieve any sympto ms. She might need more than one surgical intervention. She understood, signed a consent. Description Of Procedure: This morning, in the holding room, we proceed to doris the area that she fe lt a lump. We moved with position of the patient, but we were able to doris the area nicely in the ex ternal position to localize the lesions. The patient was brought to the operating room, placed in shepherd pine position. Anesthesia was done without complication. Then, the patient was placed in lateral de cubitus position with proper protection. The back area was prepped and draped in usual sterile fashi on. A time-out was called. Incision was made in that area. Incision was carried down to deep subcu taneous tissue. We went to the mid lower back which was meant to the right little bit and then the o ther 1 was also to the right little bit more. There were areas that we marked and we palpate the mas s, so we went in the mid back first. Incision was made in that area. Tumor was located, goes deep i nto the subcutaneous tissues, just above the muscle. The mass was excised. Muscle does not seem to be penetrated. That area closed with layers of 2-0 chromic after hemostasis and sponge count done, a nd then the nylon on the skin. The second location was also palpated and opened. Incision was jeff ed down to deep subcutaneous tissue. When we found a tumor, we noticed this cannot multilobulated. I am not sure exactly of these 2 tumors together or just same, a tumor would just multi-lobulation. Anyway, the mass was completely excised. Once again, it goes near the muscle, but does not penetrate the muscle. Area was irrigated. Hemostasis was obtained and we close this once again with 2-0 police booking officer isela in multiple layers and then the skin with nylon. Sponge count and instrument counts were correct . The patient tolerated the procedure well. The patient on her way to recovery in stable condition. JENNYFER/REX Voice ID: [id number] Report ID: [id number]
--- NOTE | 2018-07-02 21:40 | DS ---
Date of Discharge: 07/02/2018 Diagnosis: Multiple lower netbackup engineer masses. Procedures: Excisional biopsy of multiple lower netbackup engineer masses. Disposition: Home. Activity: As tolerated. No heavy lifting. Followup: Follow up in my office in 1 week. Call for appointment [phone]. Keep this area covered for the next 2 days and then may take a shower. Dressings off. RADHA Voice ID: [id number] Report ID: [id number]
== END 2018-07-02 11:34 | disposition home or self-care (01) ==
LOC: OR 07:19
PROVIDERS: ATTEND Surgery
PROC: 0JB70ZZ Excision of Back Subcutaneous Tissue and Fascia, Open Approach (ICD-10-PCS; 2018-07-02)
PROC: 0JB70ZZ Excision of Back Subcutaneous Tissue and Fascia, Open Approach (ICD-10-PCS; principal; 2018-07-02 08:30)
DX: R22.2 Localized swelling, mass and lump, trunk (principal); E11.9 Type 2 diabetes mellitus without complications; K21.9 Gastro-esophageal reflux disease without esophagitis; F17.200 Nicotine dependence, unspecified, uncomplicated; Z86.718 Personal history of other venous thrombosis and embolism; Z90.49 Acquired absence of other specified parts of digestive tract; Z82.49 Family history of ischemic heart disease and other diseases of the circulatory system
CPT/HCPCS: 11402; 11403; 36415; 71046; 80048; 82962; 85025; 88304; 93005; J0690; J2175; J2250; J2405; J2704; J3010; 88305